=== PATIENT | female | born 1975 | race African-American/Black ===

== ENCOUNTER 2017-04-26 06:16 | Emergency (ER) | payer BC ==
[2017-04-26 06:44] LABS: Bilirubin Large (Negative); Blood, Urine Large (Negative); Clarity Cloudy (Clear); Glucose, Urine (Dipstick) 500 mg/dL (Negative); Leukocyte Large (Negative); Nitrite Negative (Negative); Protein, Urine (Dipstick) > or equal to 300 mg/dL (Neg-Trace); pH, Urine 8.5 (5.0-9.0)
[2017-04-26 06:46] LABS: RBC/HPF GREATER THAN 50-TNTC HPF (0-3)
[2017-04-26 06:47] LABS: Bacteria/HPF 1+ HPF (None Seen); Other Microscopic Description NO; Squamous Epithelial 0-3 HPF (0-3)
[2017-04-26] MEDS ORDERED: Sulfameth/Trimethoprim DS 800-160mg TAB ONE (06:58)
== END 2017-04-26 07:10 | disposition home or self-care (01) ==
LOC: NAV ERS 06:16
DX: N30.01 Acute cystitis with hematuria (principal); I10 Essential (primary) hypertension
CPT/HCPCS: 81003; 81015; 87077; 87086; 87186; 99283

== ENCOUNTER 2018-08-24 17:26 | Emergency (ER) | payer BC ==
[2018-08-24] MEDS ORDERED: Orphenadrine Citrate 60 MG/2 ML VIAL ONE (17:49)
[2018-08-24] MEDS ORDERED: Ketorolac Tromethamine 60 MG/2 ML VIAL ONE (17:49)
== END 2018-08-24 18:39 | disposition home or self-care (01) ==
LOC: NAV ERS 17:26
DX: S16.1XXA Strain of muscle, fascia and tendon at neck level, initial encounter (principal); X58.XXXA Exposure to other specified factors, initial encounter
CPT/HCPCS: 96372; J1885; J2360

== ENCOUNTER 2019-01-31 13:05 | Emergency (ER) | payer BC ==
[2019-01-31 13:56] LABS: #Basophils 0.1 thou/uL (0.0-0.2); #Eosinphils 0.2 thou/uL (0.0-0.7); #Lymphocytes 3.1 thou/uL (1.20-3.40); #Monocytes 0.8 thou/uL (0.11-0.59); #Neutrophils 8.7 thou/uL (1.40-6.50); %Eosinophils 1.2 % (0.0-10.0); %Lymphocytes 24.2 % (21.0-51.0); %Monocytes 5.9 % (0.0-10.0); %Neutrophils 67.8 % (42.0-75.0); Hemoglobin 12.6 g/dL (12.0-16.0); Mean Corpuscular HGB CONC 30.8 g/dL (32.0-36.0); Mean Corpuscular Hemoglobin 25.1 pg (27.0-31.0); Mean Corpuscular Volume 81.7 fL (78.0-98.0); Mean Platelet Volume 7.7 fL (7.4-10.4); Platelet Count 372 thou/uL (130-400); RBC Distribution Width 14.1 % (11.5-14.5); Red Blood Cell (RBC) Count 5.03 mill/uL (4.20-5.40); White Blood Cell (WBC) Count 12.8 thou/uL (4.8-10.8)
[2019-01-31 14:15] LABS: ALT (SGPT) 10 U/L (8-55); AST (SGOT) 11 U/L (5-34); Alkaline Phosphatase 60 U/L (40-110); Anion Gap 17 mmol/L (10-20); BUN (Urea Nitrogen) 20 mg/dL (7.0-18.7); Bilirubin, Total 0.4 mg/dL (0.2-1.2); Calc. Creatinine Clearance 0 mL/min (70-130); Calcium 9.9 mg/dL (7.8-10.44); Carbon Dioxide 23 mmol/L (22-29); Chloride 101 mmol/L (98-107); Estimated GFR-MDRD 67; Globulin 4.5 g/dL (2.4-3.5); Glucose 198 mg/dL (70-105); Potassium 4.1 mmol/L (3.5-5.1); Protein, Total 8.5 g/dL (6.0-8.3); Sodium 137 mmol/L (136-145)
== END 2019-01-31 14:45 | disposition home or self-care (01) ==
LOC: NAV ERS 13:05
DX: I95.1 Orthostatic hypotension (principal); E11.9 Type 2 diabetes mellitus without complications; I10 Essential (primary) hypertension; Z79.84 Long term (current) use of oral hypoglycemic drugs; Z79.899 Other long term (current) drug therapy
CPT/HCPCS: 36416; 80053; 84484; 85025; 93005; 96360

== ENCOUNTER 2019-11-29 11:40 | Emergency (ER) | payer BC ==
[2019-11-29] MEDS ORDERED: Adacel (T-DAP) 0.5 ML SYRINGE ONE (12:06)
[2019-11-29] MEDS ORDERED: Bacitracin 1 PK ONE (12:06)
== END 2019-11-29 12:35 | disposition home or self-care (01) ==
LOC: NAV ERS 11:40
DX: S91.331A Puncture wound without foreign body, right foot, initial encounter (principal); E11.9 Type 2 diabetes mellitus without complications; I10 Essential (primary) hypertension; Z23 Encounter for immunization; Z79.84 Long term (current) use of oral hypoglycemic drugs; Z79.899 Other long term (current) drug therapy; W26.8XXA Contact with other sharp object(s), not elsewhere classified, initial encounter; Y92.524 Gas station as the place of occurrence of the external cause
CPT/HCPCS: 90471; 90715

== ENCOUNTER 2021-07-13 | Emergency (ER) | payer BC | END 2021-07-13 14:31 | disposition home or self-care (01) | CPT/HCPCS: 93005 ==

== ENCOUNTER 2021-12-30 15:02 | Emergency (ER) | payer BC ==
[2021-12-30] MEDS ORDERED: Ondansetron ODT 4 MG TAB ONE (15:18)
[2021-12-30] MEDS ORDERED: Ketorolac Tromethamine 60 MG/2 ML VIAL ONE (16:01)
== END 2021-12-30 16:30 | disposition home or self-care (01) ==
LOC: NAV ERS 15:02
DX: M79.661 Pain in right lower leg (principal); E11.9 Type 2 diabetes mellitus without complications; I10 Essential (primary) hypertension; E78.5 Hyperlipidemia, unspecified; Z79.84 Long term (current) use of oral hypoglycemic drugs; Z79.899 Other long term (current) drug therapy
CPT/HCPCS: 96372; 99283; J1885; Q0162